=== PATIENT | male | born 2000 | race Caucasian/White ===

== ENCOUNTER 2023-04-13 17:16 | Emergency (ER) | payer SELFPAY ==
[2023-04-13] MEDS ORDERED: Proparacaine 0.5% Opth 15 ML BOT ONE (20:10)
[2023-04-13] MEDS ORDERED: Fluorescein Opthalmic Strip ONE (20:10)
[2023-04-13] MEDS ORDERED: Boostrix 0.5 ML (Tdap) VIAL (>/=7 yrs of age) ONE (20:56)
== END 2023-04-13 21:15 | disposition home or self-care (01) ==
LOC: EDSEX 17:16 → CSHERS 17:16
DX: S05.32XA Ocular laceration without prolapse or loss of intraocular tissue, left eye, initial encounter (principal); W55.03XA Scratched by cat, initial encounter
CPT/HCPCS: 90471; 90715